=== PATIENT | female | born 1995 | race Caucasian/White ===

== ENCOUNTER 2020-10-18 20:44 | Emergency (ER) | payer OTHER ==
[~2020-10-18] VITALS: Ht 157.5 cm; Wt 81.7 kg
[2020-10-18] MEDS ORDERED: ULTRAM 50MG TAB50 MG PO (21:51)
[2020-10-18 22:00] VITALS: BP 128/98
== END 2020-10-18 22:01 | disposition home or self-care (01) ==
LOC: ER 20:44
DX: M79.602 Pain in left arm (principal); V00.131A Fall from skateboard, initial encounter; Y93.51 Activity, roller skating (inline) and skateboarding; Y92.89 Other specified places as the place of occurrence of the external cause; Y99.8 Other external cause status

== ENCOUNTER 2020-11-22 16:52 | Emergency (ER) | payer OTHER ==
[~2020-11-22] VITALS: Ht 157.5 cm; Wt 90.7 kg
[~2020-11-22 16:52] MED LIST: ULTRAM 50MG TAB50 MG PO
[2020-11-22 17:50] LABS: ABSOLUTE NEUTROPHILS 4.1 thou/uL (1.4-8.2); BASOPHILS 0.5 % (0.0-2.0); EOSINOPHILS 1.4 % (0.0-3.0); HEMATOCRIT 37.4 % (37.0-47.0); HEMOGLOBIN 12.7 gm/dL (12.0-15.0); LYMPHOCYTES 34.3 % (24.0-44.0); MCH 30.9 pg (26.0-34.0); MCV 90.9 fL (80.0-100.0); MONOCYTES 5.8 % (1.0-8.0); PLATELET COUNT 274 thou/uL (150-400); RBC 4.12 mil/uL (4.20-5.00); RDW 12.1 % (10.5-14.5)
[2020-11-22 18:05] LABS: ANION GAP 13 mmol/L (7-16); BUN 14 mg/dL (7-18); CALCIUM 8.9 mg/dL (8.5-10.1); CHLORIDE 101 mmol/L (98-107); CO2 24 mmol/L (21-32); CREATININE 0.7 mg/dL (0.6-1.0); GLUCOSE 90 mg/dL (74-106); POTASSIUM 3.8 mmol/L (3.5-5.1); SODIUM 138 mmol/L (136-145)
[2020-11-22 18:09] LABS: ALBUMIN 3.8 g/dL (3.4-5.0); AMYLASE 43 U/L (25-115); DIRECT BILIRUBIN 0.1 mg/dL (<0.1-0.2); LIPASE 151 U/L (73-393); SGOT 43 U/L (15-37); SGPT 37 U/L (30-65); TOTAL BILIRUBIN 0.4 mg/dL (0.2-1.0); TROPONIN-I <0.06 ng/mL (<0.06)
[2020-11-22 18:31] LABS: URINE BILIRUBIN NEGATIVE (Negative); URINE BLOOD NEGATIVE (Negative); URINE CLARITY CLEAR; URINE COLOR YELLOW; URINE GLUCOSE-RANDOM* NEGATIVE (Negative); URINE KETONES NEGATIVE (Negative); URINE LEUKOCYTES-REFLEX NEGATIVE (Negative); URINE NITRITE-REFLEX NEGATIVE (Negative); URINE PROTEIN (DIPSTICK) NEGATIVE (Negative); URINE SPECIFIC GRAVITY 1.025 (1.005-1.035); URINE UROBILINOGEN 0.2 E.U./dl (0.2-1.0)
[2020-11-22] MEDS ORDERED: BENTYL 10 MG CA10 M1 PO (18:54)
[2020-11-22] MEDS ORDERED: TYLENOL325 M1 PO (18:54)
[2020-11-22 19:17] VITALS: BP 136/83
--- NOTE | 2020-11-23 07:00 | EKG ---
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 11/23/20 0700 [id number] 1659 Shiva Marquez MD, FACC /EPI
== END 2020-11-22 19:30 | disposition home or self-care (01) ==
LOC: ER 16:52
PROVIDERS: Emergency Medicine
DX: R10.13 Epigastric pain (principal)